=== PATIENT | male | born 1985 | race African-American/Black ===

== ENCOUNTER 2019-05-14 17:56 | Emergency (ER) | payer MEDICAID ==
[~2019-05-14] VITALS: Ht 188 cm; Wt 86.1 kg
[2019-05-14] MEDS ORDERED: DIPHENHYDRAMINE 50MG/ML VIAL IV ONE (18:30)
[2019-05-14 18:36] LABS: HEMATOCRIT. 36.3 % (42.0-52.0); HEMOGLOBIN. 11.9 g/dL (14.0-18.0); MEAN CORPUSCULAR HEMOGLOBIN 28.8 pg (28.0-32.0); MEAN CORPUSCULAR VOLUME 88.1 fL (80.0-94.0); MEAN PLATELET VOLUME 7.9 fl (7.4-10.4); RED BLOOD CELL COUNT 4.12 mill/uL (4.7-6.1); RED CELL DISTRIBUTION WIDTH 15.3 % (11.6-14.6)
[2019-05-14 18:41] LABS: CHLORIDE 105 mEq/L (98-107)
[2019-05-14 18:45] LABS: ETHANOL BLOOD < 10 mg/dL
[2019-05-14 20:27] LABS: CREATINE KINASE MB FRACTION 1.3 ng/mL (0.5-3.6)
[2019-05-14] MEDS ORDERED: SODIUM CHLORIDE 0.9% 1,000 ML IV NR (21:15)
[2019-05-14 21:28] VITALS: BP 153/96
[2019-05-14 22:14] LABS: PLATELET ESTIMATE DECREASED
[2019-05-14 22:15] LABS: PLATELET 77 x1000/uL (130-400)
== END 2019-05-14 21:32 | disposition home or self-care (01) ==
LOC: ER 17:56
DX: R47.1 Dysarthria and anarthria (principal); M60.9 Myositis, unspecified; R47.81 Slurred speech; R03.0 Elevated blood-pressure reading, without diagnosis of hypertension; F10.20 Alcohol dependence, uncomplicated; F12.10 Cannabis abuse, uncomplicated; F17.200 Nicotine dependence, unspecified, uncomplicated; Y90.9 Presence of alcohol in blood, level not specified
CPT/HCPCS: 36415; 70450; 80053; 80320; 82550; 82553; 82962; 83605; 85025; 93005; 96374; 99284; J1200; Z7610; G0480

== ENCOUNTER 2021-02-14 12:21 | Emergency (ER) | payer MEDICAID ==
[~2021-02-14] VITALS: Ht 185.4 cm; Wt 86.0 kg
[2021-02-14 17:13] LABS: BASOPHILS % 0.9 % (0.0-2.0); EOSINOPHILS % 0.4 % (0.0-5.0); HEMATOCRIT. 48.4 % (42.0-52.0); HEMOGLOBIN. 16.3 g/dL (14.0-18.0); LYMPHOCYTES % 37.5 % (20.0-50.0); MEAN CORPUSCULAR HEMOGLOBIN 27.2 pg (28.0-32.0); MONOCYTES % 4.8 % (2.0-8.0); NEUTROPHILS % 56.4 % (40.0-76.0); PLATELET 280 x1000/uL (130-400); RED BLOOD CELL COUNT 5.98 mill/uL (4.7-6.1); RED CELL DISTRIBUTION WIDTH 14.2 % (11.6-14.6)
[2021-02-14 17:21] LABS: CHLORIDE 106 mEq/L (98-107)
[2021-02-14 17:28] LABS: ETHANOL BLOOD 284 mg/dL
[2021-02-14 20:06] LABS: *AMPHETAMINES SCREEN URINE NEGATIVE (NEGATIVE); *BARBITURATES SCREEN URINE NEGATIVE (NEGATIVE)
[2021-02-14 20:07] LABS: *BENZODIAZEPINES SCREEN URINE NEGATIVE (NEGATIVE); *COCAINE SCREEN URINE NEGATIVE (NEGATIVE); CANNABINOID URINE SCREEN PRESUMTIVE POSITIVE (NEGATIVE); METHADONE URINE SCREEN NEGATIVE (NEGATIVE); OPIATES URINE SCREEN NEGATIVE (NEGATIVE); PHENCYCLIDINE URINE SCREEN NEGATIVE (NEGATIVE)
[2021-02-15] MEDS ORDERED: LORAZEPAM 1MG TABLET PO NR (04:15)
[2021-02-15] MEDS ORDERED: CHLORDIAZEPOXIDE 25MG CAPSULE PO ONE (04:15)
[2021-02-15] MEDS ORDERED: CHLORDIAZEPOXIDE 5 MG CAPSULE PO NR (04:30)
[2021-02-15] MEDS ORDERED: CHLO25CA10 MT (05:10)
[2021-02-15 06:31] VITALS: BP 123/78
== END 2021-02-15 06:37 | disposition home or self-care (01) ==
LOC: ER 12:21
DX: R45.851 Suicidal ideations (principal); R07.2 Precordial pain; F10.229 Alcohol dependence with intoxication, unspecified; F10.251 Alcohol dependence with alcohol-induced psychotic disorder with hallucinations; Y90.8 Blood alcohol level of 240 mg/100 ml or more; R03.0 Elevated blood-pressure reading, without diagnosis of hypertension; N44.8 Other noninflammatory disorders of the testis; F12.90 Cannabis use, unspecified, uncomplicated
CPT/HCPCS: 36415; 71045; 80053; 80305; 80307; 80320; 80329; 82140; 83880; 84443; 84484; 85025; 99285; G0480